=== PATIENT | female | born 1980 | race Caucasian/White ===

== ENCOUNTER → 2019-08-29 | Outpatient (CLI) | payer BC, SELFPAY ==
[2019-09-01 08:24] LABS: HPV Reflexed? NOT INDICATED
== END | disposition home or self-care (01) ==
PROVIDERS: PCP Internal Medicine; Referring Provider Obstetrics & Gynecology; Visit Provider Obstetrics & Gynecology
DX: Z12.4 Encounter for screening for malignant neoplasm of cervix (principal)
CPT/HCPCS: 88175; G0145

== ENCOUNTER 2021-07-23 01:01 | Emergency (ER) | payer OTHER, SELFPAY ==
[2021-07-23 01:05] VITALS: BP 137/81; PULSE 145; RESP 20; TEMP 37.3; O2SAT 97
[2021-07-23 01:07] VITALS: O2SAT 98
--- NOTE | 2021-07-23 01:18 | RAD_ITS ---
ACR Level 3 findings have been noted. An addendum which confirms receipt of the report will follow. STUDY: X-RAY CHEST REASON FOR EXAM: Female, 41 years old. cough TECHNIQUE: PA and lateral COMPARISON: April 21, 2016 PA and lateral, February 04, 2012 portable AP upright view. FINDINGS: There is mild hazy opacity at the left lung base adjacent to the diaphragm on the frontal view, it is projecting at the anterior-mid chest on the lateral view, consistent with mild anterior left lower lobe or lingular pneumonia, probably in the anterior lower lobe. Normal size heart. Normal mediastinum and carlos. Normal visualized pulmonary arteries. Normal visualized aortic arch and descending thoracic aorta. Normal visualized thoracic spine. Normal visualized ribs, clavicles, and shoulders. There is no demonstrated abnormality of the visualized soft tissue structures of the upper abdomen. RAD/Chest PA and Lateral IMPRESSION: Mild left basilar infiltrate, probable pneumonia considering history of cough. Probably less likely infarct but it is juxtapleural with minimally elevated left hemidiaphragm and infarct cannot be excluded. Correlate with any evidence or risk factors for PE. Electronically Signed: Jennifer Ryder MD at 2:51 EDT ,
[2021-07-23] MEDS: Ipratropium/Albuterol Sulfate 3 ML AMPUL.NEB INHALATION (01:33)
[2021-07-23 01:34] VITALS: PULSE 120; RESP 18
--- NOTE | 2021-07-23 01:48 | EX.ED.DYSGE1 ---
HPI History of Present Illness Chief Complaint: Cough Narrative Narrative: Patient is a 41-year-old female who states that she was recently diagnosed with influenza A. She states that she had typical symptoms with this such as cough congestion and fatigue. She states this lasted about 5 days and then she started to feel better. However in the last 1 to 2 days she has had return of muscle aches congestion drainage and cough. She states that she is not been exposed to anyone other than her children who have also been sick. She states she is concerned she is developing a pneumonia because of her return of symptoms and therefore presents for evaluation. The patient denies any history of lung pathology such as asthma COPD or emphysema or need for supplemental oxygen [facility] Medical History Bilateral pulmonary embolism Home Medications benzonatate 200 mg PO TID PRN #30 cap 07/23/21 [Rx Last Taken Unknown] doxycycline hyclate 100 mg PO BID 10 Days #20 tab 07/23/21 [Rx Last Taken Unknown] ipratropium-albuterol 3 ml INHALATION Q6H PRN #90 ml 07/23/21 [Rx Last Taken Unknown] prednisone 40 mg PO DAILY 7 Days #14 tab 07/23/21 [Rx Last Taken Unknown] venlafaxine 75 mg PO DAILY 07/23/21 [History Last Taken Unknown] Allergy/AdvReac Type Severity Reaction Status Date / Time No Known Allergies Allergy Verified 07/23/21 01:03 Surgical History (Updated 07/23/21 @ 01:05 by Aidan Mckinney) Hx of tonsillectomy Social History Smoking Status: Never smoker [facility] ED Constitutional Constitutional ED: Denies chills or fever(s) ENT ENT ED: Reports rhinorrhea and sore throat Cardiovascular Cardiovascular: Denies chest pain Respiratory/Chest Respiratory/Chest: Reports cough, dyspnea and sputum Gastrointestinal Gastrointestinal: Reports nausea; Denies abdominal pain, diarrhea or vomiting Genitourinary Genitourinary ED: Denies dysuria Musculoskeletal Musculoskeletal: Reports myalgias Integumentary Denies rash Neurologic Neurologic: Denies headache(s) Hematologic/Lymphatic Hematologic/Lymphatic: Denies easy bleeding or easy bruising EXAM Physical Exam Const Vital Signs: 07/23/21 01:05 07/23/21 01:07 07/23/21 01:34 Temperature 99.2 F H Temperature Source Temporal Pulse Rate 145 H 120 H Respiratory Rate 20 H 18 Respiratory Effort Short of Breath Respiratory Depth Shallow Respiratory Pattern Normal Blood Pressure 137/81 H Blood Pressure Mean 99 Pulse Ox 97 Oxygen Delivery Method Room Air Room Air Positive well nourished and well developed General Appearance ED: well developed HEENT Reports moist mucous membranes HEENT Narrative: Nasal mucosa is hyperemic and boggy with enlarged inferior nasal turbinate. There is cobblestoning the posterior pharynx consistent with sinus drainage but no airway edema or compromise Eyes PERRL and EOMs intact bilaterally Neck supple and no JVD Neck Narrative: Positive anterior cervical lymphadenopathy noted No crepitance palpated Resp normal respiratory effort Resp Narrative: Breath sounds are diminished throughout with faint expiratory wheeze in the bilateral lower lobes otherwise no signs of distress Cardio regular rhythm Rate: tachycardic GI normal to inspection, nondistended, normoactive bowel sounds, non-tender, non-distended and no masses Auscultation: normoactive bowel sounds Palpation: soft Extremity normal to inspection Extremity Narrative: No asymmetric edema no pitting edema negative Homans' sign bilaterally Neuro oriented x3 and CN's II-XII intact bilaterally Sensorium / Orientation: alert Motor Exam: strength 5/5 throughout Psych mental status grossly normal Skin no rashes or lesions noted MDM MDM MDM Narrative Medical decision making narrative: Patient presented to the ER tachycardic but otherwise in no acute respiratory distress satting in the mid 90s on room air. She had talked about a recent diagnosis of influenza A which began to improve and then symptoms of congestion fatigue and cough returned. Secondary to this there is concern for underlying pneumonia. We did discuss how she has a previous history of PE but as she has congestion cough and drainage that this is most likely related to recurrent viral infection or pneumonia and not a pulmonary embolus. Patient reports that this is much different than the previous time she had a PE roughly 10 years ago and does not have concern for this and therefore we elected only to perform a chest x-ray at this time. Chest x-ray showed some left basilar infiltrative changes concerning for early pneumonia. She was given Decadron and a breathing treatment and on reevaluation reports feeling much better and her breath sounds are improved as well. Therefore at this time as she is not hypoxic or showing signs of septicemia I do not feel there is need for further work-up. She be placed on doxycycline prednisone and DuoNeb and is otherwise safe for discharge. Radiography Diagnostic Testing: Clinical Impression(s) from Imaging Studies Chest X-Ray 07/23/21 01:18 IMPRESSION: Mild left basilar infiltrate, probable pneumonia considering history of cough. Probably less likely infarct but it is juxtapleural with minimally elevated left hemidiaphragm and infarct cannot be excluded. Correlate with any evidence or risk factors for PE. Electronically Signed: Jennifer Ryder MD at 2:51 EDT , Chest x-ray is interpreted by the emergency medicine physician shows haziness to the bilateral lower lobes slightly greatest on the left concerning for developing infiltrate Discharge Plan Triage Chief Complaint: Cough ED Provider: Galo Vera Dx/Rx/DC Orders Clinical Impression: Left lower lobe pneumonia Instructions: ED Pneumonia (Adult) Prescriptions: New doxycycline hyclate 100 mg tablet 100 mg PO BID 10 Days Qty: 20 RF: 0 prednisone 20 mg tablet 40 mg PO DAILY 7 Days Qty: 14 RF: 0 benzonatate 200 mg capsule 200 mg PO TID PRN (Reason: cough) Qty: 30 RF: 0 ipratropium-albuterol 0.5 mg-3 mg(2.5 mg base)/3 mL solution for nebulization 3 ml inhalation Q6H PRN (Reason: shortness of breath or wheezing) Qty: 90 RF: 0 No Action venlafaxine 75 mg capsule,extended release 24hr 75 mg PO DAILY RF: 0 Primary Care Provider: Jodie Lr NP Referrals: Jodie Lr NP, PROFILING MACHINE SET UP OPERATOR-C [Primary Care Provider] - Disposition Disposition: Home, Self Care
[2021-07-23] MEDS: dexAMETHasone 10 MG/ML Vial PO.IVFORM (01:49)
[2021-07-23] MEDS: Doxycycline 100 MG CAPSULE PO (03:09)
[2021-07-23 03:23] VITALS: BP 128/60; PULSE 118; RESP 18; O2SAT 96
== END 2021-07-23 03:24 | disposition home or self-care (01) ==
PROVIDERS: Emergency Provider Emergency Medicine; PCP Nurse Practitioner Acute Care; Visit Provider Emergency Medicine
DX: J18.9 Pneumonia, unspecified organism (principal)
CPT/HCPCS: 71046; 94640; 99283